=== PATIENT | female | born 1970 | race Caucasian/White ===

== ENCOUNTER 2023-07-26 16:06 | Emergency (ER) | payer MEDICAID ==
[~2023-07-26] VITALS: Ht 172.7 cm; Wt 86.6 kg
[2023-07-26 16:18] VITALS: BP 91/69; PULSE 109; RESP 16; TEMP 99; O2SAT 96
[2023-07-26] MEDS ORDERED: guaiFENesin/CODEINE 100/10MG 5 ML UDC PO ONE (16:25)
[2023-07-26 16:41] VITALS: O2SAT 97
[2023-07-26 16:57] LABS: APPEARANCE,URINE CLEAR (CLEAR); BILIRUBIN,URINE 1+ (NEGATIVE); BLOOD, URINE TRACE-I (NEGATIVE); COLOR,URINE YELLOW (YELLOW); LEUKOCYTE ESTERASE ,URINE NEGATIVE (NEGATIVE); NITRITE, URINE NEGATIVE (NEGATIVE); PROTEIN,URINE TRACE (NEGATIVE); UGLUCOSE NEGATIVE (NEGATIVE)
[2023-07-26 17:01] VITALS: TEMP 98.6
[2023-07-26 17:01] LABS: BASOPHILS # (AUTO) 0.1 K/uL (0.00-0.22); BASOPHILS % (AUTO) 0.8 % (0.0-2.0); EOSINOPHILS # (AUTO) 0.3 K/uL (0-0.4); EOSINOPHILS % (AUTO) 4.5 % (0.0-4.0); HEMATOCRIT 44.7 % (36-48); HEMOGLOBIN 15.3 g/dL (12.0-16.0); LYMPHOCYTES # (AUTO) 1.2 K/uL (2.5-16.5); LYMPHOCYTES % (AUTO) 17.9 % (20.5-51.1); MEAN CORPUSCULAR HEMOGLOBIN 29 pg (27-31); MEAN CORPUSCULAR HGB CONC 34 g/dL (33-37); MEAN CORPUSCULAR VOLUME 84.1 fL (80-94); MONOCYTES # (AUTO) 0.8 K/uL (0.8-1.0); NEUTROPHILS # (AUTO) 4.4 K/uL (1.8-7.7); NEUTROPHILS % (AUTO) 64.8 % (42.2-75.2); PLATELET COUNT (AUTO) 188 K/uL (140-450); RED BLOOD CELL COUNT(AUTO) 5.32 MIL/uL (4.20-5.40); RED CELL DISTRIBUTION WIDTH 14.6 % (11.6-13.7); WHITE BLOOD COUNT (AUTO) 6.7 K/uL (4.8-10.8)
[2023-07-26 17:05] LABS: ICTOTEST NEGATIVE (NEGATIVE)
[2023-07-26 17:09] LABS: ANION GAP 13.2 (8-16); CALCIUM 8.6 mg/dL (8.5-10.1); CARBON DIOXIDE 25.2 mmol/L (21-32); CREATININE 1.1 mg/dL (0.6-1.3); POTASSIUM 3.4 mmol/L (3.5-5.1)
[2023-07-26] MEDS ORDERED: KETOROLAC 30 MG/ML VIAL IVP ONE (19:00)
[2023-07-26 19:32] VITALS: BP 108/83; PULSE 95; RESP 11; O2SAT 97
[2023-07-26 19:35] VITALS: O2SAT 97
[2023-07-26 20:06] LABS: FLU B ANTIGEN negative (NEGATIVE)
[2023-07-26 20:23] LABS: FLU A ANTIGEN POSITIVE (NEGATIVE)
[2023-07-26] MEDS ORDERED: DEXT118S25 PO (21:25)
[2023-07-26] MEDS ORDERED: TAM75 PO (21:29)
== END 2023-07-26 21:29 | disposition home or self-care (01) ==
LOC: MED 16:06
DX: J11.1 Influenza due to unidentified influenza virus with other respiratory manifestations (principal); Z20.822 Contact with and (suspected) exposure to COVID-19; Z79.899 Other long term (current) drug therapy
CPT/HCPCS: 36415; 71045; 71275; 80048; 81003; 85025; 85379; 87426; 87804; 96374; 99285; J1885; Q0092; Q9967

== ENCOUNTER 2024-01-29 18:03 | Emergency (ER) | payer MEDICAID ==
[~2024-01-29] VITALS: Ht 172.7 cm; Wt 88.5 kg
[~2024-01-29 18:03] MED LIST: DEXT118S25 PO; TAM75 PO
[2024-01-29 18:06] VITALS: BP 98/60; PULSE 80; RESP 14; TEMP 97.9; O2SAT 100
[2024-01-29] MEDS ORDERED: ACET-10509 PO (18:46)
[2024-01-29] MEDS ORDERED: BENZ-300 PO (18:46)
[2024-01-29] MEDS ORDERED: IBUP-1842 PO (18:46)
[2024-01-29 18:49] LABS: FLU A ANTIGEN negative (NEGATIVE); FLU B ANTIGEN NEGATIVE (NEGATIVE)
[2024-01-29 19:04] VITALS: BP 98/60; PULSE 80; RESP 14; TEMP 97.9; O2SAT 100
[2024-01-29] MEDS: IBUPROFEN 400 MG TAB PO ONE (19:06)
== END 2024-01-29 19:01 | disposition home or self-care (01) ==
LOC: MED 18:03
DX: J06.9 Acute upper respiratory infection, unspecified (principal); Z20.822 Contact with and (suspected) exposure to COVID-19; E03.9 Hypothyroidism, unspecified; Z79.899 Other long term (current) drug therapy
CPT/HCPCS: 99283